=== PATIENT | female | born 1990 | race American Indian/Alaskan Native ===

== ENCOUNTER 2016-09-26 01:45 | Outpatient (CLI) | payer SELFPAY ==
[2016-09-26] MEDS ORDERED: LACTATED RINGERS 1,000 ML ONE (02:21)
[2016-09-26] MEDS ORDERED: LACTATED RINGERS 500 ML IV ONE (02:24)
[2016-09-26 02:37] VITALS: BP 118/64
--- NOTE | 2016-09-26 09:10 | Ultrasound Report ---
OB ULTRASOUND History: No care. Technique: Transabdominal ultrasound with Doppler interrogation. Gestation: Single Position: Cephalic Amniotic Fluid: Normal RAFA = 20.5 cm Placenta: Anterior Placental Grade: 0 Heart Rate: 145 BPM Cervical length: 4.3 cm (Normal > 3 cm) NEUROANATOMY VISUALIZED: Choroid Plexus Cisterna Magnum Cerebellum Lateral Ventricle ANATOMY VISUALIZED: Stomach Kidneys Bladder Diaphragm 4 Chamber Heart Heart 3 Vessel Cord Abd. Cord Insert SPINE VISUALIZED: Longitudinal Transverse BPD: 6.5 cm = 26 w 1 d HC: 25.1 cm = 27 w 2 d AC: 22.5 cm = 27 w 0 d FL: 5.0 cm = 26 w 6 d HC/AC Ratio: 1.11 Cephalic Index: 77.5 Estimated Weight: 999 grams LMP: None given Clinical age = w d EDC: US Gest. Age = 26 w 6 d EDC: 04/29/17
== END 2016-09-26 03:47 | disposition home or self-care (01) ==
LOC: TRG 01:45
PROVIDERS: ATTEND Obstetrics & Gynecology
DX: O47.02 False labor before 37 completed weeks of gestation, second trimester (principal); Z3A.26 26 weeks gestation of pregnancy
CPT/HCPCS: 76805; J7120

== ENCOUNTER 2016-12-12 22:09 | Outpatient (CLI) | payer MEDICAID ==
[2016-12-12] MEDS ORDERED: LACTATED RINGERS 1,000 ML IV SCH (23:45)
[2016-12-12] MEDS ORDERED: LACTATED RINGERS 1,000 ML ONE (23:47)
[2016-12-13] MEDS ORDERED: VISTARIL PO ONE (00:46)
== END 2016-12-13 01:12 | disposition home or self-care (01) ==
LOC: TRG 22:09
PROVIDERS: ATTEND Obstetrics & Gynecology
DX: O26.893 Other specified pregnancy related conditions, third trimester (principal); R10.9 Unspecified abdominal pain; O47.1 False labor at or after 37 completed weeks of gestation; Z3A.37 37 weeks gestation of pregnancy
CPT/HCPCS: 96360; J7120; Q0177